=== PATIENT | male | born 1970 | race Two or more races ===

== ENCOUNTER 2020-11-20 09:17 | Emergency (ER) | payer MEDICAID, OTHER ==
[~2020-11-20] VITALS: Ht 162.6 cm; Wt 99.8 kg
[2020-11-20 09:36] VITALS: BP 132/89
[2020-11-20] MEDS ORDERED: ACETAMINOPHEN 500 MG TAB PO ONE (10:45)
[2020-11-20] MEDS ORDERED: cefTRIAXone SOD 1,000 MG VL IM ONE (10:45)
[2020-11-20] MEDS ORDERED: ONDANSETRON ODT 4 MG TAB PO ONE ×2 (11:00→11:01)
== END 2020-11-20 11:21 | disposition home or self-care (01) ==
LOC: ER 09:17
DX: U07.1 COVID-19 (principal); J12.89 Other viral pneumonia; E11.9 Type 2 diabetes mellitus without complications; I10 Essential (primary) hypertension
CPT/HCPCS: 71045; 96372; 99283; J0696; Q0162

== ENCOUNTER 2024-03-22 07:55 | Emergency (ER) | payer MEDICAID ==
[~2024-03-22] VITALS: Ht 162.6 cm; Wt 90.3 kg
[2024-03-22 08:18] VITALS: BP 134/99; PULSE 98; RESP 19; TEMP 99.6; O2SAT 100
[2024-03-22] MEDS ORDERED: CEPH500T PO (08:30)
[2024-03-22] MEDS: ACETAMINOPHEN 500 MG TAB PO ONE (08:30)
[2024-03-22] MEDS ORDERED: IBUP-1456 PO (08:30)
[2024-03-22] MEDS: cefTRIAXone SOD 1,000 MG VL IM ONE (08:31)
== END 2024-03-22 08:56 | disposition home or self-care (01) ==
LOC: ER 07:55
DX: L08.9 Local infection of the skin and subcutaneous tissue, unspecified (principal); R22.0 Localized swelling, mass and lump, head; E11.9 Type 2 diabetes mellitus without complications; I10 Essential (primary) hypertension
CPT/HCPCS: 96372; 99283; J0696

== ENCOUNTER 2024-03-23 07:49 | Emergency (ER) | payer MEDICAID ==
[~2024-03-23] VITALS: Ht 162.6 cm; Wt 89.1 kg
[~2024-03-23 07:49] MED LIST: CEPH500T PO; IBUP-1456 PO
[2024-03-23 08:19] VITALS: BP 141/89; PULSE 102; RESP 18; TEMP 98.1; O2SAT 98
== END 2024-03-23 08:52 | disposition home or self-care (01) ==
LOC: ER 07:49
DX: L02.31 Cutaneous abscess of buttock (principal); I10 Essential (primary) hypertension; E11.9 Type 2 diabetes mellitus without complications; Z48.01 Encounter for change or removal of surgical wound dressing; Z79.899 Other long term (current) drug therapy